=== PATIENT | female | born 1975 | race Caucasian/White ===

== ENCOUNTER 2021-09-07 18:58 | Emergency (ER) | payer OTHER ==
[~2021-09-07] VITALS: Ht 172.7 cm; Wt 104.3 kg
[2021-09-07 20:16] LABS: URINE BILIRUBIN NEGATIVE (Negative); URINE BLOOD NEGATIVE (Negative); URINE CLARITY CLEAR; URINE COLOR YELLOW; URINE GLUCOSE-RANDOM* NEGATIVE (Negative); URINE KETONES NEGATIVE (Negative); URINE LEUKOCYTES-REFLEX NEGATIVE (Negative); URINE NITRITE-REFLEX NEGATIVE (Negative); URINE PROTEIN (DIPSTICK) NEGATIVE (Negative)
[2021-09-07 21:20] LABS: ABSOLUTE NEUTROPHILS 10.4 thou/uL (1.4-8.2); BASOPHILS 0.5 % (0.0-2.0); HEMATOCRIT 32.4 % (37.0-47.0); HEMOGLOBIN 11.5 gm/dL (12.0-15.0); LYMPHOCYTES 12.6 % (24.0-44.0); MCH 27.9 pg (26.0-34.0); MCHC 35.5 g/dL (28.0-37.0); MCV 78.6 fL (80.0-100.0); MONOCYTES 4.5 % (1.0-8.0); PLATELET COUNT 220 thou/uL (150-400); POLYS 80.4 % (36.0-66.0); RBC 4.13 mil/uL (4.20-5.00); RDW 15.6 % (10.5-14.5); WBC 12.9 thou/uL (4.0-11.0)
[2021-09-07 22:02] LABS: ANION GAP 21 mmol/L (7-16); BUN 11 mg/dL (7-18); CALCIUM 8.2 mg/dL (8.5-10.1); CHLORIDE 100 mmol/L (98-107); CO2 13 mmol/L (21-32); CREATININE 0.6 mg/dL (0.6-1.0); GLUCOSE 144 mg/dL (74-106); POTASSIUM 5.5 mmol/L (3.5-5.1); SODIUM 134 mmol/L (136-145)
[2021-09-07 22:07] LABS: ALBUMIN 3.2 g/dL (3.4-5.0); LIPASE 163 U/L (73-393); TOTAL BILIRUBIN 0.5 mg/dL (0.2-1.0); TOTAL PROTEIN 7.5 g/dL (6.4-8.2)
[2021-09-08] MEDS ORDERED: HYDROXYZINE HCL10 M2 PO (01:35)
[2021-09-08] MEDS ORDERED: VENLAFAXINE HC150 M1 PO (01:35)
[2021-09-08] MEDS ORDERED: OXYCODONE-APAP1 EAC4 PO (04:09)
[2021-09-08 04:16] VITALS: BP 137/85
--- NOTE | 2021-09-08 07:22 | EKG ---
[place] [address] [facility] [address] [place] [address] ELECTROCARDIOGRAM REPORT Name: DREA PICKERING [facility]ustin[facility] [id number] Admission: 09/07/21 Attend Phys: Discharge: 09/08/21 Date of : 71 Report #: [id number] [facility] ED Test Date: 2021-09-07 Test Time: 19:22:45 Pat Name: DREA PICKERING Department: Room: Gender: F [employer] Reader: MICHAEL : 1975 Requested By: Ashley Nunez Order Number: [id number] MD: Josh Gomez Measurements Intervals [place] Rate: 89 P: 56 DE: 151 QRS: -19 QRSD: 120 T: 64 QT: 390 QTc: 475 Interpretive Statements Sinus rhythm Incomplete left bundle branch block Left ventricular hypertrophy Anterior Q waves, possibly due to LVH Baseline wander in lead(s) I,II,aVR,aVF,V1,V2,V3,V4 No previous ECG available for comparison Electronically Signed On 09-08-2021 7:21:53 CDT by Josh Gomez [email or web address] <ELECTRONICALLY SIGNED> By: Josh Gomez MD, [facility] 09/08/21720 21 21 Josh Gomez MD, [facility] /EPI
== END 2021-09-08 04:27 | disposition home or self-care (01) ==
LOC: ER 18:58
PROVIDERS: Emergency Medicine
DX: N83.202 Unspecified ovarian cyst, left side (principal); R10.13 Epigastric pain; F32.9 Major depressive disorder, single episode, unspecified